=== PATIENT | female | born 1945 | race Hispanic/Latino ===

== ENCOUNTER → 2018-03-12 | Outpatient (CLI) | payer OTHER | END | disposition home or self-care (01) | LOC: RAH 15:01 | PROVIDERS: ATTEND Internal Medicine | DX: Z12.31 Encounter for screening mammogram for malignant neoplasm of breast (principal) | CPT/HCPCS: 77067 ==

== ENCOUNTER → 2019-05-13 | Outpatient (CLI) | payer OTHER | END | disposition home or self-care (01) | LOC: RAH 15:53 | PROVIDERS: ATTEND Internal Medicine | DX: Z12.31 Encounter for screening mammogram for malignant neoplasm of breast (principal) | CPT/HCPCS: 77067 ==

== ENCOUNTER → 2020-02-03 | Outpatient (CLI) | payer OTHER | END | disposition home or self-care (01) | LOC: RAH 09:13 | PROVIDERS: ATTEND Internal Medicine | DX: E03.4 Atrophy of thyroid (acquired) (principal); E03.9 Hypothyroidism, unspecified | CPT/HCPCS: 76536 ==

== ENCOUNTER → 2020-07-03 | Outpatient (CLI) | payer OTHER | END | disposition home or self-care (01) | LOC: RAH 14:37 | PROVIDERS: ATTEND Internal Medicine | DX: Z12.31 Encounter for screening mammogram for malignant neoplasm of breast (principal) | CPT/HCPCS: 77067 ==

== ENCOUNTER → 2020-12-18 | Outpatient (CLI) | payer OTHER | END | disposition home or self-care (01) | LOC: LAB 15:48 | PROVIDERS: ATTEND Internal Medicine | DX: M25.431 Effusion, right wrist (principal) | CPT/HCPCS: 73100 ==

== ENCOUNTER → 2023-07-06 | Outpatient (CLI) | payer OTHER | END | disposition home or self-care (01) | LOC: RAH 12:37 | PROVIDERS: ATTEND Family Medicine | DX: G31.89 Other specified degenerative diseases of nervous system (principal); G44.319 Acute post-traumatic headache, not intractable | CPT/HCPCS: 70450 ==

== ENCOUNTER 2023-10-07 14:57 | Observation (INO) | payer OTHER ==
[~2023-10-07] VITALS: Ht 165.1 cm; Wt 58.5 kg
[~2023-10-07 14:57] MED LIST: AMLO-257 PO
[2023-10-07 16:35] LABS: BASOPHILS # (AUTO) 0.05 K/uL (0.00-0.20); BASOPHILS % (AUTO) 0.6 % (0.0-5.0); EOSINOPHILS % (AUTO) 2.6 % (0.0-8.0); HEMATOCRIT 37.3 % (36-48); IMMATURE GRANULOCYTE ABSOLUTE 0.03 K/uL (0-1); LYMPHOCYTES # (AUTO) 1.8 K/uL (1.0-4.8); LYMPHOCYTES % (AUTO) 23.2 % (21.0-51.0); MEAN CORPUSCULAR HEMOGLOBIN 32.5 pg (27.0-33.0); MEAN CORPUSCULAR HGB CONC 33.5 g/dL (32.0-36.0); MEAN CORPUSCULAR VOLUME 96.9 fL (79-99); MONOCYTES # (AUTO) 0.8 K/uL (0.1-1.0); MONOCYTES % (AUTO) 10.1 % (3.0-13.0); NEUTROPHILS # (AUTO) 4.9 K/uL (1.8-7.7); NEUTROPHILS % (AUTO) 63.1 % (40.0-77.0); PLATELET COUNT (AUTO) 351 K/uL (130-400); RED BLOOD CELL COUNT(AUTO) 3.85 MIL/uL (4.00-5.50); RED CELL DISTRIBUTION WIDTH 14.8 % (11.0-15.5); WHITE BLOOD COUNT (AUTO) 7.7 K/uL (4.8-10.8)
[2023-10-07 16:47] LABS: CREATININE 0.7 mg/dL (0.5-1.0); POTASSIUM 3.6 mmol/L (3.5-5.1)
[2023-10-07 16:52] LABS: ALBUMIN 3.9 g/dL (3.5-5.0); BILIRUBIN,TOTAL 0.3 mg/dL (0.2-1.0); TOTAL PROTEIN, SERUM 7.5 g/dL (6.0-8.3)
[2023-10-07] MEDS: 0.9%NACL 1000ML 1,000 ML IV SCH (19:30)
[2023-10-07 19:38] LABS: APPEARANCE,URINE CLEAR (CLEAR); BILIRUBIN,URINE NEGATIVE (NEGATIVE); COLOR,URINE COLORLESS (YELLOW); GLUCOSE, URINE (UA) NEGATIVE (NEGATIVE); KETONES,URINE NEGATIVE (NEGATIVE); LEUKOCYTE ESTERASE ,URINE NEGATIVE Leu/uL (NEGATIVE); NITRATE,URINE NEGATIVE (NEGATIVE); OCCULT BLOOD,URINE NEGATIVE (NEGATIVE); PH,URINE 7.5 (5.0-8.0); PROTEIN,URINE NEGATIVE (NEGATIVE); UROBILINOGEN,URINE 0.2 mg/dL (0.2-1.0)
[2023-10-07 19:39] LABS: ADD UA MICROSCOPIC YES
[2023-10-07 19:41] LABS: SQUAMOUS EPITHELIAL CELL,UR RARE /HPF (0-2); WBC,URINE 0-1 /HPF (0-1)
[2023-10-07 19:44] LABS: INR 1.01 (0.85-1.15); PROTHROMBIN TIME 10.9 SEC (9.6-11.6)
[2023-10-07 19:45] LABS: PARTIAL THROMBOPLASTIN TIME 26.5 SEC (26.3-35.5)
[2023-10-07] MEDS ORDERED: acetaMINOPHEN 650 MG SUPPOSITORY RC PRN (20:00)
[2023-10-07] MEDS ORDERED: ONDANSETRON 4MG INJ IVP PRN (20:00)
[2023-10-07] MEDS ORDERED: hydrALAZine 20MG/ML VIAL IV PRN (20:00)
[2023-10-07] MEDS ORDERED: doCUSate SODIUM 100 MG CAP PO PRN (20:00)
[2023-10-07] MEDS ORDERED: LACTULOSE 20 GM/30 ML UDCUP PO PRN (20:00)
[2023-10-07 20:04] LABS: HEMOGLOBIN A1C 5.6 % (4.0-6.0)
[2023-10-07 20:31] LABS: THYROID STIMULATING HORMONE 7.76 uIU/mL (0.36-3.74)
[2023-10-07] MEDS: LORazepam 2 MG/ML 1 ML VIAL IVP ONE (21:31)
[2023-10-07] MEDS ORDERED: HYDR25TA PO (21:55)
[2023-10-07] MEDS ORDERED: LEVO100C4 PO (21:55)
[2023-10-07] MEDS: INSULIN humuLIN R 100 UNIT/ML 3ML SQ SCH (23:00)
[2023-10-07 23:50] VITALS: BP 148/75; PULSE 54; RESP 20; O2SAT 98
[2023-10-08] VITALS (8 sets, daily range): BP systolic 146–175; BP diastolic 44–95; PULSE 50–59; RESP 18; O2SAT 96–100
[2023-10-08 04:43] LABS: BASOPHILS # (AUTO) 0.06 K/uL (0.00-0.20); BASOPHILS % (AUTO) 0.9 % (0.0-5.0); EOSINOPHILS # (AUTO) 0.27 K/uL (0.00-0.70); EOSINOPHILS % (AUTO) 4.2 % (0.0-8.0); HEMATOCRIT 35.2 % (36-48); IMMATURE GRANULOCYTE ABSOLUTE 0.02 K/uL (0-1); LYMPHOCYTES # (AUTO) 1.7 K/uL (1.0-4.8); LYMPHOCYTES % (AUTO) 26.7 % (21.0-51.0); MEAN CORPUSCULAR HEMOGLOBIN 33.1 pg (27.0-33.0); MEAN CORPUSCULAR HGB CONC 33.8 g/dL (32.0-36.0); MEAN CORPUSCULAR VOLUME 98.1 fL (79-99); MONOCYTES # (AUTO) 0.7 K/uL (0.1-1.0); MONOCYTES % (AUTO) 11.3 % (3.0-13.0); NEUTROPHILS # (AUTO) 3.6 K/uL (1.8-7.7); NEUTROPHILS % (AUTO) 56.6 % (40.0-77.0); PLATELET COUNT (AUTO) 318 K/uL (130-400); RED BLOOD CELL COUNT(AUTO) 3.59 MIL/uL (4.00-5.50); RED CELL DISTRIBUTION WIDTH 14.8 % (11.0-15.5); WHITE BLOOD COUNT (AUTO) 6.4 K/uL (4.8-10.8)
[2023-10-08 05:03] LABS: HEMOGLOBIN A1C 5.6 % (4.0-6.0)
[2023-10-08 05:07] LABS: CREATININE 0.7 mg/dL (0.5-1.0); MAGNESIUM 1.9 mg/dL (1.80-2.40); POTASSIUM 3.7 mmol/L (3.5-5.1); THYROID STIMULATING HORMONE 7.86 uIU/mL (0.36-3.74)
[2023-10-08] MEDS: LEVOTHYROXINE 100 MCG TABLET PO SCH (06:30)
[2023-10-08] MEDS ORDERED: NON-FORMULARY MEDICATION 1 EACH (Levothyroxine Sodium (Levothyroxine) 100 MCG) PO SCH (09:00)
[2023-10-08] MEDS: ASPIRIN 81MG CHEW TAB PO SCH (10:54)
[2023-10-08] MEDS: hydroCHLOROthiazide 25 MG TABLET PO SCH (10:54)
[2023-10-08] MEDS: CYANOCOBALAMIN (VITAMIN B-12) 1,000 MCG TABLET PO SCH (10:54)
[2023-10-08] MEDS ORDERED: ATOR40TA69 PO (13:45)
[2023-10-08] MEDS ORDERED: LEVO100T4 PO (13:45)
[2023-10-08] MEDS ORDERED: APIX5TAB PO (13:45)
[2023-10-08] MEDS ORDERED: DRON400T7 PO (13:45)
[2023-10-08] MEDS: APIXaban 5 MG TABLET PO SCH (16:00)
[2023-10-08] MEDS ORDERED: amLODIPine 5 MG TAB PO SCH (21:00)
[2023-10-08] MEDS: topIRAMate 25 MG TABLET PO SCH (21:02)
[2023-10-08] MEDS: amLODIPine 5 MG TAB PO SCH (21:02)
[2023-10-08] MEDS: ATORVASTATIN 40 MG TABLET PO SCH (21:02)
[2023-10-09] VITALS: BP 140/62; PULSE 53; RESP 18
[2023-10-09 04:04] VITALS: BP 139/55; PULSE 52; RESP 18
[2023-10-09] MEDS: acetaMINOPHEN 325 MG TAB PO PRN (05:30)
[2023-10-09] MEDS ORDERED: TOPI25TA42 PO (07:23)
[2023-10-09] MEDS ORDERED: CYAN-52 PO (07:23)
[2023-10-09 08:00] VITALS: BP 123/60; PULSE 60; RESP 17; O2SAT 97
== END 2023-10-09 12:30 | disposition home or self-care (01) ==
LOC: EDH 14:57 → INTOOBSV 18:46 → EDHIP 18:46 → 4CH 23:35
PROVIDERS: ADMIT Internal Medicine; ATTEND Internal Medicine
DX: G44.309 Post-traumatic headache, unspecified, not intractable (principal); S09.90XA Unspecified injury of head, initial encounter; F07.81 Postconcussional syndrome; R29.6 Repeated falls; R42 Dizziness and giddiness; E53.8 Deficiency of other specified B group vitamins; I10 Essential (primary) hypertension; E03.9 Hypothyroidism, unspecified; I48.91 Unspecified atrial fibrillation; E11.9 Type 2 diabetes mellitus without complications; G31.84 Mild cognitive impairment of uncertain or unknown etiology; Z90.710 Acquired absence of both cervix and uterus; W19.XXXA Unspecified fall, initial encounter; Y93.89 Activity, other specified; Y92.89 Other specified places as the place of occurrence of the external cause; Y99.8 Other external cause status
CPT/HCPCS: 96360; 96361 ×3; 99285; 83036 ×2; 84443 ×2; 80053; 85025 ×2; 85610; 85730; 82948 ×6; 82607; 82746; 81001; 36415 ×2; 71045; 70450; 93005; 83735; 84100; 80048; 97161; 97116; G0378 ×42; J2060; G8980-CI; G8983-CI

== ENCOUNTER → 2024-05-31 | Outpatient (CLI) | payer OTHER ==
[~2024-05-31] MED LIST changes: +APIX5TAB PO; +ATOR40TA69 PO; +CYAN-52 PO; +DRON400T7 PO; +HYDR25TA PO; +LEVO100T4 PO; +TOPI25TA42 PO
[2024-05-31 12:34] LABS: PROTHROMBIN TIME 10.6 SEC (9.6-11.6)
== END | disposition home or self-care (01) ==
LOC: LAB 08:49
PROVIDERS: ATTEND Internal Medicine Cardiovascular Disease
DX: I48.0 Paroxysmal atrial fibrillation (principal); Z79.01 Long term (current) use of anticoagulants
CPT/HCPCS: 36415; 85610